=== PATIENT | male | born 1980 | race Caucasian/White ===

== ENCOUNTER 2020-01-17 08:20 | Emergency (ER) | payer SELFPAY ==
[~2020-01-17] VITALS: Ht 185.4 cm; Wt 93.0 kg
--- NOTE | 2020-01-17 08:33 | NUR ---
ED Nurse Note: Pt walked in from home c/o headache, dizziness, and photosensitivity x 3 days. Pt reports falling on head, but denies loss of consciousness. Reports n/v x 2 on Monday. Respirations even and unlabored on room air. Vitals stable as documented.
[2020-01-17 08:35] VITALS: BP 132/78
--- NOTE | 2020-01-17 08:38 | NUR ---
ED Nurse Note: ED MD @ bedside
--- NOTE | 2020-01-17 08:45 | Emergency Room Report ---
History of Present Illness General Chief Complaint: Head Injury Source: Patient Present Illness HPI Disclaimer: Please note that this report is being documented using [employer] technology. This can lead to erroneous entry secondary to incorrect interpretation by the dictating instrument. HPI: 39-year-old male presents after a closed head injury. Patient was using a power tool when it jumped and pushed him against a wall striking the back of his head. He denies loss of consciousness. But since the injury 3 days ago initially did have 2 episodes of nausea and vomiting and now has some dizziness and photophobia. No longer having any nausea and vomiting and is tolerating oral intake. Pain is 8 out of 10 and nonradiating. He has taken Tylenol and Motrin with minimal relief. PMH: Patient denies any past medical history PSH: Reviewed Social Hx: Denies smoking drinking or illicit drug use Allergies: Coded Allergies: No Known Allergies (Unverified , 01/17/20) COVID-19 Screening Contact w/high risk pt: No Experienced COVID-19 symptoms?: No COVID-19 Testing performed [employer]: No Patient History Reviewed Nursing Documentation: PMH: Agreed; PSxH: Agreed Nursing Documentation-PMH Past Medical History: No Stated History Review of Systems All Other Systems: negative except mentioned in HPI Physical Exam Vital Signs Date Time Temp Pulse Resp B/P (MAP) Pulse Ox O2 Delivery O2 Flow Rate FiO2 01/17/20 08:28 98.8 62 16 134/81 (98) 98 Room Air Sp02 EP Interpretation: reviewed, normal General Appearance: well appearing, no apparent distress Head: normocephalic, other - Abrasion noted to occipital scalp with mild tenderness no depressions or deformities. No raccoon eyes or mathias sign. Eyes: bilateral eye PERRL, bilateral eye EOMI ENT: hearing grossly normal, TMs + canals normal, moist mucus membranes, other - No hemotympanum laterally Neck: full range of motion, supple, other - No midline tenderness Respiratory: lungs clear, normal breath sounds, no rhonchi, no respiratory distress, no retraction, no wheezing Cardiovascular #1: normal peripheral pulses, regular rate, rhythm, no murmur Gastrointestinal: non tender, soft, non-distended, no guarding Musculoskeletal: other - Spine nontender to palpation Neurologic: alert, motor strength/tone normal, fiberglass laminator III-XII nml as tested, oriented x3, sensory intact, cerebellar normal, speech normal, normal gait, grossly normal, no focal defects Skin: normal color, warm/dry Procedures Critical Care Time Critical Care Time Critical care is made on the patient due to presentation with basilar skull fracture requiring my acute intervention. Critical care time is approximately 35 minutes and excludes procedures Medical Decision Making Diagnostic Impression: Primary Impression: Basilar skull fracture Additional Impression: Closed head injury ER Course MDM: Differential diagnosis included but not limited to closed head injury, skull fracture, intracranial hemorrhage, neck strain, concussion, postconcussive syndrome to name a few Clinical course-patient was neurologically intact on exam. Due to his dizziness with photophobia I did order a head CT which demonstrated a occipital skull fracture extending through the foramen magnum. I then added basic laboratory studies and a CT scan of the C-spine. C-spine CT was negative. Low suspicion for other traumatic injury. Patient given analgesics with improvement of his pain. Patient remained in no acute distress Labs - Laboratory Tests Test 01/17/20 10:15 White Blood Count 6.0 K/UL (4.8-10.8) Red Blood Count 5.00 M/UL (4.70-6.10) Hemoglobin 16.4 G/DL (14.2-18.0) Hematocrit 47.6 % (42.0-52.0) Mean Corpuscular Volume 95 FL (80-99) Mean Corpuscular Hemoglobin 32.8 PG (27.0-31.0) H Mean Corpuscular Hemoglobin Concent 34.5 G/DL (32.0-36.0) Red Cell Distribution Width 10.7 % (11.6-14.8) L Platelet Count 197 K/UL (150-450) Mean Platelet Volume 7.6 FL (6.5-10.1) Neutrophils (%) (Auto) 57.8 % (45.0-75.0) Lymphocytes (%) (Auto) 31.7 % (20.0-45.0) Monocytes (%) (Auto) 9.5 % (1.0-10.0) Eosinophils (%) (Auto) 0.3 % (0.0-3.0) Basophils (%) (Auto) 0.8 % (0.0-2.0) Prothrombin Time 10.5 SEC (9.30-11.50) Prothrombin Time INR 0.9 (0.9-1.1) Activated Partial Thromboplast Time 27 SEC (23-33) Sodium Level 139 MMOL/L (136-145) Potassium Level 3.8 MMOL/L (3.5-5.1) Chloride Level 101 MMOL/L (98-107) Carbon Dioxide Level 28 MMOL/L (21-32) Anion Gap 10 mmol/L (5-15) Blood Urea Nitrogen 12 mg/dL (7-18) Creatinine 1.2 MG/DL (0.55-1.30) Estimated Glomerular Filtration Rate > 60 mL/min (>60) Glucose Level 114 MG/DL (74-106) H Calcium Level 9.4 MG/DL (8.5-10.1) Total Bilirubin 0.5 MG/DL (0.2-1.0) Aspartate Amino Transferase (AST) 18 U/L (15-37) Alanine Aminotransferase (ALT) 30 U/L (12-78) Alkaline Phosphatase 56 U/L (46-116) Total Protein 7.9 G/DL (6.4-8.2) Albumin 4.1 G/DL (3.4-5.0) Globulin 3.8 g/dL Albumin/Globulin Ratio 1.1 (1.0-2.7) On reevaluation: Patient remained in no acute distress Plan-as patient has a basilar skull fracture he will require neurosurgical evaluation. Patient required higher level of care. Case was discussed with Dr. Patel from [facility] who accepted patient to [facility] for further evaluation and observation. Unfortunately when I discussed the transfer to the patient he refused to be transferred and wished to go by private vehicle to [facility]. Patient signed out AGAINST MEDICAL ADVICE from our hospital. At time of signing out AGAINST MEDICAL ADVICE he was alert oriented neurologically intact without signs of intoxication. CT/MRI/US Diagnostic Results CT/MRI/US Diagnostic Results #1: Imaging Test Ordered: CT head no contrast Impression CT scan of the brain showed evidence of fracture of the occipital bone CT/MRI/US Diagnostic Results #2: Imaging Test Ordered: CT scan C-spine Impression No acute fracture or subluxation Last Vital Signs Date Time Temp Pulse Resp B/P (MAP) Pulse Ox O2 Delivery O2 Flow Rate FiO2 01/17/20 08:35 98.1 71 16 132/78 99 Room Air Disposition: AGAINST MEDICAL ADVICE Condition: Serious Jeff Ruffin M.D. Jan 17, 2020 08:45
--- NOTE | 2020-01-17 08:58 | NUR ---
ED Nurse Note: Pt back from CT. No signs of acute distress noted
--- NOTE | 2020-01-17 10:22 | NUR ---
ED Nurse Note: iv inserted and blood sent to lab
[2020-01-17 10:29] LABS: BASOPHILS % (AUTO) 0.8 % (0.0-2.0); EOSINOPHILS % (AUTO) 0.3 % (0.0-3.0); HEMATOCRIT 47.6 % (42.0-52.0); HEMOGLOBIN 16.4 G/DL (14.2-18.0); LYMPHOCYTES % (AUTO) 31.7 % (20.0-45.0); MEAN CORPUSCULAR VOLUME 95 FL (80-99); MONOCYTES % (AUTO) 9.5 % (1.0-10.0); NEUTROPHILS % (AUTO) 57.8 % (45.0-75.0); PLATELET COUNT 197 K/UL (150-450); RED CELL DISTRIBUTION WIDTH 10.7 % (11.6-14.8)
[2020-01-17 10:38] LABS: ANION GAP 10 mmol/L (5-15); BLOOD UREA NITROGEN 12 mg/dL (7-18); CALCIUM 9.4 MG/DL (8.5-10.1); CARBON DIOXIDE 28 MMOL/L (21-32); CHLORIDE 101 MMOL/L (98-107); CREATININE 1.2 MG/DL (0.55-1.30); POTASSIUM 3.8 MMOL/L (3.5-5.1); SODIUM 139 MMOL/L (136-145)
[2020-01-17 10:41] LABS: INR 0.9 (0.9-1.1)
[2020-01-17 10:43] LABS: ALANINE AMINOTRANSFERASE 30 U/L (12-78); ALBUMIN 4.1 G/DL (3.4-5.0); ALBUMIN/GLOBULIN RATIO 1.1 (1.0-2.7); ALKALINE PHOSPHATASE 56 U/L (46-116); ASPARTATE AMINO TRANSFERASE 18 U/L (15-37); BILIRUBIN,TOTAL 0.5 MG/DL (0.2-1.0)
[2020-01-17 12:47] VITALS: BP 133/85
--- NOTE | 2020-01-17 12:47 | NUR ---
AMA: Pt did not want to be transferred to [facility] by ambulance d/t financial/insurance reasons. ED MD @ bedside spoke with patients about risks of leaving and benefts of going to [facility]. Pt still refused. Pt A+Ox4, speaking in full sentences. Respirations even and unlabored on room air. All vitals stable as documented. Pt signed AMA form. IV and wristband removed. Pt says that he will call an uber and go to [facility]. Paperwork provided for patient to bring to [facility]. SEE AMA FORM. Copy of AMA form given to patient. Pt walked out with steady gait.
--- NOTE | 2020-01-17 14:35 | Diagnostic Imaging Report ---
Indications: Head trauma, pain, closed head injury Technique: Spiral acquisitions obtained through the brain. Angled axial and coronal 5 x 5 mm slices were reconstructed. Total dose length product 1098 mGycm. CTDI vol(s) 53 mGy. Dose reduction achieved using automated exposure control Comparison: None. Findings: There is a high right parietal scalp contusion. There is a fracture extending from the right side of the foramen magnum through the occipital bone into the posterior parietal bone. No acute intracranial hemorrhage nor edema. No mass effect nor midline shift. Normal bobby-white differentiation. Visualized orbits and sinuses are unremarkable. The mastoids are clear Impression: Right occipitoparietal skull fracture. No acute intracranial bleed or mass effect High right parietal scalp contusion The CT scanner at [facility] is accredited by the [employer] and the scans are performed using protocols designed to limit radiation exposure to as low as reasonably achievable to attain images of sufficient resolution adequate for diagnostic evaluation.
--- NOTE | 2020-01-17 15:18 | Diagnostic Imaging Report ---
Indication: Head trauma Technique: Spiral acquisitions obtained through the cervical spine. No IV contrast utilized. Multiplanar reconstructions were generated. Total dose length product 233 mGycm. CTDIvol(s) 7 mGy. Dose reduction achieved using automated exposure control. Comparison: none Findings: Nondisplaced fracture of the right occipital bone, also demonstrated on recent CT scan, is noted. There is slight reversal of the normal cervical lordosis. Otherwise normal bony alignment. The vertebral body heights are preserved. No acute fractures. No dislocations. There is mild degenerative disc narrowing at C4-5. No significant disc bulge or protrusion, spinal stenosis, or neural foraminal stenosis. At C5-6, there is mild degenerative disc narrowing. There is moderate bilateral neural foraminal stenosis. No significant disc bulge or protrusion or spinal stenosis. At the remaining disc levels, no significant disc bulge or protrusion, spinal stenosis, or neural foraminal narrowing. Impression: No acute cervical bony trauma Undisplaced right occipital bone calvarial fracture-the separate head CT report Degenerative changes as detailed on a level by level basis above The CT scanner at [facility] is accredited by the [employer] and the scans are performed using protocols designed to limit radiation exposure to as low as reasonably achievable to attain images of sufficient resolution adequate for diagnostic evaluation.
== END 2020-01-17 12:47 | disposition left against medical advice (07) ==
LOC: EMR 08:43
DX: S02.0XXA Fracture of vault of skull, initial encounter for closed fracture (principal); S00.03XA Contusion of scalp, initial encounter; M40.50 Lordosis, unspecified, site unspecified; W22.8XXA Striking against or struck by other objects, initial encounter; Y92.9 Unspecified place or not applicable; R42 Dizziness and giddiness
CPT/HCPCS: 36415; 70450; 72125; 80053; 85025; 85610; 85730; 99291